=== PATIENT | female | born 1945 | race Caucasian/White ===

== ENCOUNTER 2018-02-20 15:20 | Emergency (ER) | payer OTHER ==
[~2018-02-20] VITALS: Ht 149.9 cm; Wt 62.1 kg
[2018-02-20 15:28] VITALS: BP 118/83
[2018-02-20] MEDS ORDERED: VALIUM5 MG PO (16:02)
[2018-02-20] MEDS ORDERED: MOBIC15 MG PO (16:02)
== END 2018-02-20 16:19 | disposition home or self-care (01) ==
LOC: ER 15:20
DX: S16.1XXA Strain of muscle, fascia and tendon at neck level, initial encounter (principal); F17.210 Nicotine dependence, cigarettes, uncomplicated; I10 Essential (primary) hypertension; Z96.649 Presence of unspecified artificial hip joint; X58.XXXA Exposure to other specified factors, initial encounter; Y92.89 Other specified places as the place of occurrence of the external cause; Y93.89 Activity, other specified; Y99.8 Other external cause status

== ENCOUNTER 2020-11-17 11:35 | Emergency (ER) | payer MEDICARE ==
[~2020-11-17] VITALS: Ht 149.9 cm; Wt 61.2 kg
[~2020-11-17 11:35] MED LIST: MOBIC15 MG PO; VALIUM5 MG PO
[2020-11-17] MEDS ORDERED: MOBIC7.5 MG PO (12:32)
[2020-11-17] MEDS ORDERED: ATENOLOL 100MG100 MG PO (12:32)
[2020-11-17] MEDS ORDERED: LIPITOR10 MG PO (12:33)
[2020-11-17 12:34] LABS: ABSOLUTE NEUTROPHILS 5.1 thou/uL (1.4-8.2); BASOPHILS 0.5 % (0.0-2.0); EOSINOPHILS 0.3 % (0.0-3.0); HEMATOCRIT 49.4 % (37.0-47.0); HEMOGLOBIN 17.2 gm/dL (12.0-15.0); LYMPHOCYTES 16.2 % (24.0-44.0); MCH 35.2 pg (26.0-34.0); MCHC 34.9 g/dL (28.0-37.0); MCV 100.7 fL (80.0-100.0); MONOCYTES 6.1 % (1.0-8.0); PLATELET COUNT 201 thou/uL (150-400); POLYS 76.9 % (36.0-66.0); RDW 13.2 % (10.5-14.5); WBC 6.6 thou/uL (4.0-11.0)
[2020-11-17 12:41] LABS: CALCIUM 8.8 mg/dL (8.5-10.1); CREATININE 0.6 mg/dL (0.6-1.0); POTASSIUM 4.2 mmol/L (3.5-5.1)
[2020-11-17 12:46] LABS: ALBUMIN 3.6 g/dL (3.4-5.0); TOTAL BILIRUBIN 0.6 mg/dL (0.2-1.0)
[2020-11-17 14:36] LABS: URINE BILIRUBIN NEGATIVE (Negative); URINE BLOOD NEGATIVE (Negative); URINE CLARITY CLEAR; URINE COLOR YELLOW; URINE GLUCOSE-RANDOM* NEGATIVE (Negative); URINE KETONES 1+ (Negative); URINE LEUKOCYTES-REFLEX NEGATIVE (Negative); URINE NITRITE-REFLEX NEGATIVE (Negative); URINE PROTEIN (DIPSTICK) NEGATIVE (Negative); URINE SPECIFIC GRAVITY <= 1.005 (1.005-1.035); URINE UROBILINOGEN 0.2 E.U./dl (0.2-1.0)
[2020-11-17] MEDS ORDERED: NORCO5 PO (15:08)
[2020-11-17] MEDS ORDERED: METHOCARBAMOL500 M2 PO (15:08)
[2020-11-17 15:28] VITALS: BP 135/67
[2020-11-18] MEDS ORDERED: NORCO5 PO (06:39)
== END 2020-11-17 15:28 | disposition home or self-care (01) ==
LOC: ER 11:35
PROVIDERS: Nurse Practitioner Family
DX: M54.6 Pain in thoracic spine (principal); I10 Essential (primary) hypertension; F17.210 Nicotine dependence, cigarettes, uncomplicated; Z79.899 Other long term (current) drug therapy